=== PATIENT | male | born 1970 | race Caucasian/White ===

== ENCOUNTER 2016-11-22 16:00 | Emergency (ER) | payer BC ==
[~2016-11-22] VITALS: Ht 170.2 cm; Wt 113.6 kg
[~2016-11-22 16:00] MED LIST: BYSTOLIC5 MG PO
[2016-11-22 16:08] VITALS: BP 150/101
== END 2016-11-22 18:15 | disposition home or self-care (01) ==
LOC: ED 16:00
DX: S01.312A Laceration without foreign body of left ear, initial encounter (principal); I10 Essential (primary) hypertension; W45.8XXA Other foreign body or object entering through skin, initial encounter
CPT/HCPCS: 13361; 14070; 5930; A4550

== ENCOUNTER 2022-05-20 21:03 | Emergency (ER) | payer OTHER ==
[2022-05-20 23:25] VITALS: BP 166/105
== END 2022-05-20 23:21 | disposition home or self-care (01) ==
LOC: ED 21:03
DX: S67.196A Crushing injury of right little finger, initial encounter (principal); W23.0XXA Caught, crushed, jammed, or pinched between moving objects, initial encounter